=== PATIENT | female | born 1950 | race African-American/Black ===

== ENCOUNTER 2018-09-09 12:45 | Emergency (ER) | payer MEDICARE, MEDICAID ==
[~2018-09-09] VITALS: Ht 170.2 cm; Wt 118.0 kg
[~2018-09-09 12:45] MED LIST: COLC0.6T66; TRIA1CAP35
[2018-09-09] MEDS ORDERED: SODIUM CHLORIDE 0.9% 1,000 ML IV ONE (14:26)
[2018-09-09 14:56] LABS: HEMATOCRIT. 33.9 % (36.0-48.0); HEMOGLOBIN. 11.4 g/dL (12.0-16.0); MEAN CORPUSCULAR HEMOGLOBIN 27.2 pg (28.0-32.0); MEAN CORPUSCULAR VOLUME 80.7 fL (81.0-99.0); PLATELET 311 x1000/uL (130-400)
[2018-09-09 15:00] LABS: CHLORIDE 102 mEq/L (98-107)
[2018-09-09 15:13] LABS: PLATELET ESTIMATE NORMAL
[2018-09-09] MEDS ORDERED: POTASSIUM CHLORIDE 20MEQ TABLET SR PO ONE (16:45)
[2018-09-09] MEDS ORDERED: KCL 10MEQ/50ML PREMIX 50 ML IV ONE (16:45)
[2018-09-09 19:30] VITALS: BP 167/72
== END 2018-09-09 19:34 | disposition home or self-care (01) ==
LOC: ER 12:45
DX: R19.7 Diarrhea, unspecified (principal)
CPT/HCPCS: 36415; 71045; 80053; 83690; 85025; 93005; 96360; 96361; 99284; J3480; J7030

== ENCOUNTER 2018-09-21 10:41 | Emergency (ER) | payer MEDICARE, MEDICAID ==
[~2018-09-21] VITALS: Ht 172.7 cm; Wt 100.0 kg
[2018-09-21 12:19] LABS: BASOPHILS % 1.3 % (0.0-2.0); EOSINOPHILS % 0.2 % (0.0-5.0); HEMATOCRIT. 32.3 % (36.0-48.0); HEMOGLOBIN. 10.8 g/dL (12.0-16.0); LYMPHOCYTES % 20.8 % (20.0-50.0); MEAN CORPUSCULAR HEMOGLOBIN 26.7 pg (28.0-32.0); MEAN CORPUSCULAR VOLUME 80.2 fL (81.0-99.0); MEAN PLATELET VOLUME 8.4 fl (7.4-10.4); MONOCYTES % 8.6 % (2.0-8.0); NEUTROPHILS % 69.1 % (40.0-76.0); PLATELET 320 x1000/uL (130-400); RED BLOOD CELL COUNT 4.03 mill/uL (4.2-5.4); RED CELL DISTRIBUTION WIDTH 16.1 % (11.6-14.6)
[2018-09-21 12:26] LABS: CHLORIDE 101 mEq/L (98-107)
[2018-09-21] MEDS ORDERED: POTASSIUM CHLORIDE 20MEQ/PACKET PO ONE (13:00)
[2018-09-21] MEDS ORDERED: MAGNESIUM 2 G PREMIX 50 ML IV ONE (13:00)
[2018-09-21] MEDS ORDERED: KCL 20MEQ/100ML PREMIX 100 ML IV ONE (13:00)
[2018-09-21 14:40] VITALS: BP 123/66
== END 2018-09-21 16:01 | disposition short-term general hospital (02) ==
LOC: ER 10:41
DX: E87.6 Hypokalemia (principal); E83.42 Hypomagnesemia; I10 Essential (primary) hypertension; Z74.01 Bed confinement status; Z87.828 Personal history of other (healed) physical injury and trauma
CPT/HCPCS: 36415; 80053; 83735; 85025; 93005; 96365; 96368; 99285; J3475; J3480

== ENCOUNTER 2020-12-12 03:58 | Emergency (ER) | payer MEDICARE, MEDICAID ==
[~2020-12-12] VITALS: Ht 165.1 cm; Wt 154.0 kg
[2020-12-12] MEDS ORDERED: SODIUM CHLORIDE 0.9% 1,000 ML IV ONE (04:30)
[2020-12-12 05:19] LABS: BASOPHILS % 0.8 % (0.0-2.0); EOSINOPHILS % 1.2 % (0.0-5.0); HEMATOCRIT. 37.9 % (36.0-48.0); LYMPHOCYTES % 13.9 % (20.0-50.0); MEAN CORPUSCULAR HEMOGLOBIN 25.6 pg (28.0-32.0); MEAN CORPUSCULAR VOLUME 80.6 fL (81.0-99.0); MEAN PLATELET VOLUME 7.4 fl (7.4-10.4); MONOCYTES % 4.8 % (2.0-8.0); NEUTROPHILS % 79.3 % (40.0-76.0); PLATELET 346 x1000/uL (130-400); RED CELL DISTRIBUTION WIDTH 16.4 % (11.6-14.6)
[2020-12-12 05:20] LABS: CHLORIDE 103 mEq/L (98-107)
[2020-12-12 06:08] LABS: CLARITY URINE CLEAR (CLEAR); COLOR URINE YELLOW (YELLOW); KETONES URINE NEGATIVE (NEGATIVE); LEUKOCYTE ESTERASE URINE 2+ (NEGATIVE); NITRITE URINE NEGATIVE (NEGATIVE); OCCULT BLOOD URINE 1+ (NEGATIVE); PH URINE 7.5 (4.5-8.0); PROTEIN URINE 2+ (NEGATIVE); SPECIFIC GRAVITY URINE 1.004 (1.005-1.030); UROBILINOGEN URINE 0.2 E.U./dL (0.2-1.0)
[2020-12-12 09:50] VITALS: BP 181/86
== END 2020-12-12 11:08 | disposition home or self-care (01) ==
LOC: ER 04:39
DX: R19.7 Diarrhea, unspecified (principal); R53.1 Weakness; I10 Essential (primary) hypertension
CPT/HCPCS: 36415; 80053; 81003; 83690; 83735; 85025; 85610; 99283; J7030

== ENCOUNTER 2021-08-05 11:01 | Emergency (ER) | payer MEDICARE, MEDICAID ==
[~2021-08-05] VITALS: Ht 165.1 cm; Wt 181.0 kg
[2021-08-05 12:25] LABS: HEMOGLOBIN. 11.3 g/dL (12.0-16.0); MEAN CORPUSCULAR HEMOGLOBIN 25.5 pg (28.0-32.0); MEAN CORPUSCULAR VOLUME 83.2 fL (81.0-99.0); MEAN PLATELET VOLUME 6.9 fl (7.4-10.4); PLATELET 288 x1000/uL (130-400); RED BLOOD CELL COUNT 4.45 mill/uL (4.2-5.4)
[2021-08-05 12:33] LABS: CHLORIDE 93 mEq/L (98-107)
[2021-08-05] MEDS ORDERED: FUROSEMIDE 40MG/4ML VIAL IVP NR (13:00)
[2021-08-05 13:16] LABS: PLATELET ESTIMATE NORMAL
[2021-08-05 22:00] VITALS: BP 118/98
== END 2021-08-05 22:20 | disposition short-term general hospital (02) ==
LOC: ER 11:16
DX: J96.91 Respiratory failure, unspecified with hypoxia (principal); I10 Essential (primary) hypertension; Z20.822 Contact with and (suspected) exposure to COVID-19
CPT/HCPCS: 36415; 71045; 80053; 83880; 84484; 85025; 87426; 93005; 96374; 99291; C9803; J1940

== ENCOUNTER 2021-08-15 03:44 | Inpatient (IN) | payer MEDICARE, MEDICAID ==
[~2021-08-15] VITALS: Ht 165.1 cm; Wt 148.9 kg
[2021-08-15 05:09] LABS: BASOPHILS % 0.7 % (0.0-2.0); EOSINOPHILS % 3.2 % (0.0-5.0); HEMATOCRIT. 34.9 % (36.0-48.0); HEMOGLOBIN. 10.7 g/dL (12.0-16.0); LYMPHOCYTES % 8.4 % (20.0-50.0); MEAN CORPUSCULAR HEMOGLOBIN 25.5 pg (28.0-32.0); MEAN CORPUSCULAR VOLUME 83.1 fL (81.0-99.0); MEAN PLATELET VOLUME 7.8 fl (7.4-10.4); MONOCYTES % 10.7 % (2.0-8.0); PLATELET 235 x1000/uL (130-400); RED BLOOD CELL COUNT 4.21 mill/uL (4.2-5.4)
[2021-08-15 05:20] LABS: CHLORIDE 95 mEq/L (98-107)
[2021-08-15] MEDS ORDERED: DOCUSATE SODIUM 100MG CAPSULE PO PRN (08:15)
[2021-08-15] MEDS ORDERED: HYDROCODONE/ACETAMINOPHEN 5/325MG TABLET PO PRN (08:15)
[2021-08-15] MEDS ORDERED: ONDANSETRON HCL 4MG/2ML INJ IV PRN (08:15)
[2021-08-15] MEDS ORDERED: DIPHENHYDRAMINE 50MG/ML VIAL IV PRN (08:15)
[2021-08-15] MEDS ORDERED: NALOXONE HCL 0.4MG/ML VIAL IV PRN (08:15)
[2021-08-15] MEDS ORDERED: GUAIFENESIN 200MG/10ML SUGAR FREE UDC PO PRN (08:15)
[2021-08-15] MEDS ORDERED: HYDRALAZINE 20MG/ML VIAL IV PRN (08:15)
[2021-08-15] MEDS ORDERED: CLONIDINE 0.1MG TABLET PO PRN (08:15)
[2021-08-15] MEDS ORDERED: MORPHINE SULFATE 2 MG/ML CPJ (NOT FOR IM USE) IV PRN (08:15)
[2021-08-15] MEDS ORDERED: MAGNESIUM/ALUMINUM HYDROXIDE/SIMETHICONE 30ML UDC PO PRN (08:15)
[2021-08-15] MEDS: ENOXAPARIN 40MG/0.4ML SYR SUBCUT SCH ×2 (09:42→22:19)
[2021-08-15 10:40] VITALS: BP 157/67
[2021-08-15 11:23] VITALS: BP 157/67
[2021-08-15] MEDS ORDERED: AMLO10TA80 MT (11:28)
[2021-08-15 12:00] VITALS: BP 152/68
[2021-08-15] MEDS ORDERED: FURO20TA4 PO (12:34)
[2021-08-15] MEDS ORDERED: LOSA25TA26 MT (12:34)
[2021-08-15] MEDS: ASPIRIN 81MG EC TABLET PO SCH (13:18)
[2021-08-15] MEDS: AMLODIPINE 5MG TABLET PO SCH (13:20)
[2021-08-15] MEDS: SODIUM CHLORIDE 0.9% INJ 3ML FLUSH IVF SCH ×2 (13:21→22:19)
[2021-08-15 16:00] VITALS: BP 148/59
[2021-08-15 20:00] VITALS: BP 133/61
[2021-08-15] MEDS ORDERED: DEXTROSE 50% WATER 50ML SYRINGE IV PRN (22:15)
[2021-08-15] MEDS ORDERED: INSULIN LISPRO 100 UNITS/ML SUBCUT NR (22:15)
[2021-08-15] MEDS: LORAZEPAM 2MG/ML CPJ IV PRN (22:19)
[2021-08-16] VITALS: BP 128/61
[2021-08-16 04:00] VITALS: BP 135/62
[2021-08-16] MEDS: SODIUM CHLORIDE 0.9% INJ 3ML FLUSH IVF SCH ×3 (05:52→22:00)
[2021-08-16 07:06] LABS: HEMATOCRIT. 28.1 % (36.0-48.0); HEMOGLOBIN. 8.7 g/dL (12.0-16.0); MEAN CORPUSCULAR HEMOGLOBIN 26.3 pg (28.0-32.0); MEAN CORPUSCULAR VOLUME 84.5 fL (81.0-99.0); MEAN PLATELET VOLUME 8.3 fl (7.4-10.4); PLATELET 201 x1000/uL (130-400); RED BLOOD CELL COUNT 3.32 mill/uL (4.2-5.4)
[2021-08-16 07:16] LABS: CHLORIDE 97 mEq/L (98-107)
[2021-08-16] MEDS ORDERED: BLOOD SUGAR DIAGNOSTIC STRIP TEST SCH (07:20)
[2021-08-16] MEDS ORDERED: INSULIN LISPRO 100 UNITS/ML SUBCUT SCH (07:50)
[2021-08-16 08:00] VITALS: BP 152/69
[2021-08-16] MEDS: ASPIRIN 81MG EC TABLET PO SCH (09:05)
[2021-08-16] MEDS: AMLODIPINE 5MG TABLET PO SCH (09:05)
[2021-08-16] MEDS: ACETAMINOPHEN 325MG TABLET PO PRN (09:05)
[2021-08-16] MEDS: ENOXAPARIN 40MG/0.4ML SYR SUBCUT SCH (09:05)
[2021-08-16 12:00] VITALS: BP 140/54
[2021-08-16 16:00] VITALS: BP 159/64
[2021-08-16 20:00] VITALS: BP 155/71
[2021-08-16 21:25] LABS: PLATELET ESTIMATE NORMAL
[2021-08-16] MEDS: IPRATROPIUM/ALBUTEROL 0.5-3(2.5)MG/3ML NEB HHN PRN (21:37)
[2021-08-16] MEDS: LORAZEPAM 2MG/ML CPJ IV PRN (22:00)
[2021-08-17] VITALS: BP 142/66
[2021-08-17 04:00] VITALS: BP 136/64
[2021-08-17] MEDS: IPRATROPIUM/ALBUTEROL 0.5-3(2.5)MG/3ML NEB HHN PRN ×2 (05:32→16:25)
[2021-08-17] MEDS: SODIUM CHLORIDE 0.9% INJ 3ML FLUSH IVF SCH ×2 (06:22→21:25)
[2021-08-17] MEDS: ACETAMINOPHEN 325MG TABLET PO PRN ×2 (06:23→09:03)
[2021-08-17 08:00] VITALS: BP 163/85
[2021-08-17] MEDS: AMLODIPINE 5MG TABLET PO SCH ×2 (09:03→21:24)
[2021-08-17 12:00] VITALS: BP 150/50
[2021-08-17 16:00] VITALS: BP 158/69
[2021-08-17 20:00] VITALS: BP 139/59
[2021-08-17] MEDS: SODIUM CHLORIDE 0.45% 1,000 ML IV SCH (21:24)
[2021-08-18] VITALS: BP 151/85
[2021-08-18] MEDS: SODIUM CHLORIDE 0.45% 1,000 ML IV SCH ×2 (03:06→18:15)
[2021-08-18 04:00] VITALS: BP 134/58
[2021-08-18] MEDS: SODIUM CHLORIDE 0.9% INJ 3ML FLUSH IVF SCH ×3 (06:00→21:59)
[2021-08-18] MEDS: IPRATROPIUM/ALBUTEROL 0.5-3(2.5)MG/3ML NEB HHN PRN (06:35)
[2021-08-18 08:00] VITALS: BP 158/72
[2021-08-18] MEDS: AMLODIPINE 5MG TABLET PO SCH ×2 (09:47→21:59)
[2021-08-18 12:00] VITALS: BP 140/60
[2021-08-18 16:00] VITALS: BP 136/64
[2021-08-18 20:00] VITALS: BP 138/56
[2021-08-19] VITALS: BP 146/66
[2021-08-19 04:00] VITALS: BP 158/84
[2021-08-19] MEDS: IPRATROPIUM/ALBUTEROL 0.5-3(2.5)MG/3ML NEB HHN PRN ×4 (04:45→16:00)
[2021-08-19] MEDS: SODIUM CHLORIDE 0.9% INJ 3ML FLUSH IVF SCH ×2 (06:01→14:00)
[2021-08-19] MEDS: SODIUM CHLORIDE 0.45% 1,000 ML IV SCH (06:01)
[2021-08-19 08:00] VITALS: BP 156/69
[2021-08-19] MEDS: AMLODIPINE 5MG TABLET PO SCH ×2 (09:51→19:48)
[2021-08-19 12:00] VITALS: BP 140/69
[2021-08-19] MEDS ORDERED: IBUPROFEN 400MG TABLET PO PRN (12:45)
[2021-08-19 16:00] VITALS: BP 140/70
[2021-08-19 19:20] VITALS: BP 158/83
== END 2021-08-19 20:10 | disposition home health service (06) | DRG 190 ==
LOC: ER 03:44 → 6WST 06:58 → EDBEDREQ 07:36 → ENRESERV 09:30
PROVIDERS: ADMIT Internal Medicine; ATTEND Internal Medicine
DX: I21.4 Non-ST elevation (NSTEMI) myocardial infarction (principal); I27.20 Pulmonary hypertension, unspecified; E46 Unspecified protein-calorie malnutrition; G90.8 Other disorders of autonomic nervous system; Z68.43 Body mass index [BMI] 50.0-59.9, adult; I50.1 Left ventricular failure, unspecified; I11.0 Hypertensive heart disease with heart failure; E66.09 Other obesity due to excess calories; J44.9 Chronic obstructive pulmonary disease, unspecified; I49.1 Atrial premature depolarization; I89.0 Lymphedema, not elsewhere classified; Z86.16 Personal history of COVID-19; Z87.01 Personal history of pneumonia (recurrent); I25.10 Atherosclerotic heart disease of native coronary artery without angina pectoris; I49.3 Ventricular premature depolarization; D64.9 Anemia, unspecified; I07.1 Rheumatic tricuspid insufficiency; Z20.822 Contact with and (suspected) exposure to COVID-19; J98.11 Atelectasis; F17.210 Nicotine dependence, cigarettes, uncomplicated; Z90.49 Acquired absence of other specified parts of digestive tract; Z79.899 Other long term (current) drug therapy; Z74.01 Bed confinement status; Z91.81 History of falling
CPT/HCPCS: 36415; 71045; 80053; 82962; 83735; 84484; 85025; 87426; 93005; 93306; 93970; 94640; 97162; 99285; C9803; J1650; J2060

== ENCOUNTER 2021-08-23 09:40 | Inpatient (IN) | payer MEDICARE, MEDICAID ==
[~2021-08-23] VITALS: Ht 170.2 cm; Wt 143.1 kg
[~2021-08-23 09:40] MED LIST changes: -COLC0.6T66; +FURO20TA4 PO; +LOSA25TA26 MT; -TRIA1CAP35
[2021-08-23 10:47] LABS: BG BASE EXCESS 11.5 mmol/L (-2.0-2.0); BG CARBOXYHEMOGLOBIN 0.2 % (0.5-1.5); BG DEOXYHEMOGLOBIN 10.7 % (0.0-5.0); BG HCO3 ACT 39.2 mmol/L (22.0-26.0); BG METHEMOGLOBIN 0.2 % (0.0-1.5); BG OXYGEN SATURATION 89.3 % (92.0-98.5); BG OXYHEMOGLOBIN 88.9 % (94.0-97.0); BG PCO2 71.2 mmHg (35.0-45.0); BG PH 7.359 (7.350-7.450); BG PO2 61.5 mmHg (75.0-100.0); BG SAMPLE SITE RIGHT RADIAL; BG TOTAL HEMOGLOBIN 10.4 g/dL (12.0-18.0); BG VENT MODE NASAL CANNULA
[2021-08-23 11:04] LABS: HEMATOCRIT. 32.6 % (36.0-48.0); HEMOGLOBIN. 10.2 g/dL (12.0-16.0); MEAN CORPUSCULAR HEMOGLOBIN 25.5 pg (28.0-32.0); MEAN CORPUSCULAR VOLUME 81.9 fL (81.0-99.0); MEAN PLATELET VOLUME 8.3 fl (7.4-10.4); PLATELET 328 x1000/uL (130-400); RED BLOOD CELL COUNT 3.98 mill/uL (4.2-5.4); RED CELL DISTRIBUTION WIDTH 17.6 % (11.6-14.6)
[2021-08-23 11:07] LABS: CHLORIDE 93 mEq/L (98-107)
[2021-08-23] MEDS ORDERED: ASPIRIN 325MG EC TABLET PO NR (11:45)
[2021-08-23] MEDS ORDERED: NITROGLYCERIN OINT 1GM/INCH UDPKT TD NR (11:45)
[2021-08-23] MEDS ORDERED: ENOXAPARIN 100MG/ML SYR SUBCUT NR (11:45)
[2021-08-23] MEDS ORDERED: FUROSEMIDE 40MG TABLET PO NR (11:45)
[2021-08-23 14:07] LABS: PLATELET ESTIMATE NORMAL
[2021-08-23] MEDS ORDERED: ACETAMINOPHEN 325MG TABLET PO PRN ×2 (16:30)
[2021-08-23] MEDS ORDERED: MAGNESIUM/ALUMINUM HYDROXIDE/SIMETHICONE 30ML UDC PO PRN (16:30)
[2021-08-23] MEDS ORDERED: CLONIDINE 0.1MG TABLET PO PRN (16:30)
[2021-08-23] MEDS ORDERED: HYDROCODONE/ACETAMINOPHEN 5/325MG TABLET PO PRN (16:30)
[2021-08-23] MEDS ORDERED: GUAIFENESIN 200MG/10ML SUGAR FREE UDC PO PRN (16:30)
[2021-08-23] MEDS ORDERED: ONDANSETRON HCL 4MG/2ML INJ IV PRN (16:30)
[2021-08-23] MEDS ORDERED: IPRATROPIUM/ALBUTEROL 0.5-3(2.5)MG/3ML NEB NEB PRN (16:30)
[2021-08-23 17:03] LABS: BG BASE EXCESS 12.2 mmol/L (-2.0-2.0); BG CARBOXYHEMOGLOBIN 0.5 % (0.5-1.5); BG DEOXYHEMOGLOBIN 6.8 % (0.0-5.0); BG FRACTION INSPIRED OXYGEN 32; BG METHEMOGLOBIN 0.1 % (0.0-1.5); BG OXYGEN SATURATION 93.2 % (92.0-98.5); BG OXYHEMOGLOBIN 92.6 % (94.0-97.0); BG PCO2 80.7 mmHg (35.0-45.0); BG PH 7.324 (7.350-7.450); BG PO2 74.4 mmHg (75.0-100.0); BG SAMPLE SITE RIGHT RADIAL; BG TOTAL HEMOGLOBIN 10.9 g/dL (12.0-18.0); BG VENT MODE NASAL CANNULA
[2021-08-23] MEDS ORDERED: FUROSEMIDE 40MG/4ML VIAL IV SCH (17:15)
[2021-08-23] MEDS ORDERED: NALOXONE HCL 0.4MG/ML VIAL IV PRN (17:45)
[2021-08-23] MEDS: AMLODIPINE 10MG TABLET PO SCH (18:15)
[2021-08-23 18:47] VITALS: BP 146/85
[2021-08-23] MEDS: SPIRONOLACTONE 25MG TABLET PO SCH (18:58)
[2021-08-23] MEDS: FUROSEMIDE 40MG/4ML VIAL IV SCH (18:59)
[2021-08-23 20:00] VITALS: BP 131/79
[2021-08-23 22:00] VITALS: BP 117/71
[2021-08-23 22:30] VITALS: BP 131/79
[2021-08-24] VITALS (12 sets, daily range): BP systolic 101–160; BP diastolic 55–85
[2021-08-24 05:54] LABS: HEMATOCRIT. 33.7 % (36.0-48.0); HEMOGLOBIN. 10.1 g/dL (12.0-16.0); MEAN CORPUSCULAR HEMOGLOBIN 25.4 pg (28.0-32.0); MEAN CORPUSCULAR VOLUME 84.3 fL (81.0-99.0); MEAN PLATELET VOLUME 8.5 fl (7.4-10.4); PLATELET 296 x1000/uL (130-400); RED BLOOD CELL COUNT 3.99 mill/uL (4.2-5.4); RED CELL DISTRIBUTION WIDTH 17.7 % (11.6-14.6)
[2021-08-24 06:15] LABS: CHLORIDE 92 mEq/L (98-107)
[2021-08-24 06:32] LABS: PHOSPHORUS 3.3 mg/dL (2.5-4.9)
[2021-08-24] MEDS: FUROSEMIDE 40MG/4ML VIAL IV SCH ×2 (06:41→18:24)
[2021-08-24] MEDS ORDERED: ENOXAPARIN 40MG/0.4ML SYR SUBCUT SCH (09:00)
[2021-08-24] MEDS ORDERED: MAGNESIUM 2 G PREMIX 50 ML IV NR (10:00)
[2021-08-24] MEDS: AMLODIPINE 10MG TABLET PO SCH (10:06)
[2021-08-24] MEDS: SPIRONOLACTONE 25MG TABLET PO SCH (10:06)
[2021-08-24 15:14] LABS: PLATELET ESTIMATE NORMAL
[2021-08-24 15:29] LABS: TOTAL IRON BINDING CAPACITY 252 ug/dL (250-450)
[2021-08-24 15:53] LABS: FOLIC ACID (FOLATE) SERUM 3.5 ng/mL (>5.38)
[2021-08-24] MEDS ORDERED: HALOPERIDOL LACTATE 5MG/ML VIAL IM PRN (19:30)
[2021-08-24] MEDS: ENOXAPARIN 40MG/0.4ML SYR SUBCUT SCH ×2 (20:54→21:00)
[2021-08-24] MEDS ORDERED: QUETIAPINE FUMARATE 25MG TABLET PO SCH (21:00)
[2021-08-24] MEDS ORDERED: FERROUS SULFATE 325MG TABLET PO SCH (21:30)
[2021-08-25] VITALS (12 sets, daily range): BP systolic 84–130; BP diastolic 43–96
[2021-08-25] MEDS: FUROSEMIDE 40MG/4ML VIAL IV SCH ×2 (05:53→17:47)
[2021-08-25 06:35] LABS: HEMATOCRIT. 31.6 % (36.0-48.0); HEMOGLOBIN. 9.8 g/dL (12.0-16.0); MEAN CORPUSCULAR HEMOGLOBIN 25.7 pg (28.0-32.0); MEAN CORPUSCULAR VOLUME 82.7 fL (81.0-99.0); MEAN PLATELET VOLUME 8.7 fl (7.4-10.4); PLATELET 327 x1000/uL (130-400); RED BLOOD CELL COUNT 3.82 mill/uL (4.2-5.4); RED CELL DISTRIBUTION WIDTH 17.4 % (11.6-14.6)
[2021-08-25 06:46] LABS: CHLORIDE 91 mEq/L (98-107)
[2021-08-25] MEDS: AMLODIPINE 10MG TABLET PO SCH (10:09)
[2021-08-25] MEDS: SPIRONOLACTONE 25MG TABLET PO SCH (10:09)
[2021-08-25] MEDS: ENOXAPARIN 40MG/0.4ML SYR SUBCUT SCH (10:09)
[2021-08-25] MEDS ORDERED: QUETIAPINE FUMARATE 50MG TABLET PO SCH ×2 (10:14→21:00)
[2021-08-25] MEDS ORDERED: TRAZODONE HCL 50MG TABLET PO SCH (10:15)
[2021-08-25 17:56] LABS: PLATELET ESTIMATE NORMAL
[2021-08-25] MEDS ORDERED: IPRATROPIUM/ALBUTEROL 0.5-3(2.5)MG/3ML NEB HHN SCH (18:00)
[2021-08-25] MEDS ORDERED: METHYLPREDNISOLONE SOD SUCC 125 MG/2 ML VIAL IV SCH (22:00)
== END 2021-08-25 23:40 | disposition short-term general hospital (02) | DRG 190 ==
LOC: ER 09:53 → 5EST 16:03 → SUPCPDRO 16:13 → ENRESERV 17:41
PROVIDERS: ADMIT Internal Medicine; ATTEND Internal Medicine
DX: I21.4 Non-ST elevation (NSTEMI) myocardial infarction (principal); J96.21 Acute and chronic respiratory failure with hypoxia; G93.40 Encephalopathy, unspecified; I50.43 Acute on chronic combined systolic (congestive) and diastolic (congestive) heart failure; E44.1 Mild protein-calorie malnutrition; I11.0 Hypertensive heart disease with heart failure; J44.1 Chronic obstructive pulmonary disease with (acute) exacerbation; I27.20 Pulmonary hypertension, unspecified; J96.22 Acute and chronic respiratory failure with hypercapnia; E87.2 Acidosis; E66.2 Morbid (severe) obesity with alveolar hypoventilation; E11.9 Type 2 diabetes mellitus without complications; D64.9 Anemia, unspecified; E83.42 Hypomagnesemia; F41.9 Anxiety disorder, unspecified; J84.9 Interstitial pulmonary disease, unspecified; U09.9 Post COVID-19 condition, unspecified; F32.A Depression, unspecified; F29 Unspecified psychosis not due to a substance or known physiological condition; Z20.822 Contact with and (suspected) exposure to COVID-19; I89.0 Lymphedema, not elsewhere classified; I49.3 Ventricular premature depolarization; Z79.899 Other long term (current) drug therapy; Z74.01 Bed confinement status; Z87.01 Personal history of pneumonia (recurrent); Z87.891 Personal history of nicotine dependence; Z99.81 Dependence on supplemental oxygen; Z83.3 Family history of diabetes mellitus; Z82.49 Family history of ischemic heart disease and other diseases of the circulatory system; Z68.42 Body mass index [BMI] 45.0-49.9, adult
CPT/HCPCS: 36415; 36600; 71045; 78580; 80048; 80053; 82375; 82607; 82728; 82746; 82805; 83036; 83540; 83550; 83735; 83880; 84100; 84443; 84484; 85025; 87426; 92610; 93005; 93308; 93970; 97162; 97166; 99291; J1630; J1650; J1940; J3475